=== PATIENT | male | born 1930 | race Caucasian/White ===

== ENCOUNTER → 2017-04-10 | Outpatient (CLI) | payer MEDICARE ==
[2015-04-06 12:32] VITALS: BMI 23.7
[~2017-04-10] MED LIST: ACE325 PO; ACET-1966 PO; ACET-2043 PO; ACET-3017 PO; ALB18R INH; ALBU8.5H IH; ALLO100T70 PO; AMLO-96 PO; AMOX-559 PO; ASPI-1441 PO; ASPI-757 PO; ASPI81TA94 PO; AZIT-1 PO; AZIT-17 PO; Albuterol/Ipratropium NEB; BISA10SU62 RC; CA C1TAB85 PO; CALC-18 PO; CALC-465 PO; CALC200 PO; CALC500T6 PO; CALC600T82 PO; CEFU500T50 PO; CEPH-13 PO; CHOL10005 PO; CITA-139 PO; DOC100 PO; DOCU-416 PO; FAM20 PO; FERR-53 PO; FERR325C2 PO; FERR325T24 PO; FLU IM; FLUC100T35 PO; FURO-45 PO; FURO-47 PO; FURO20TA19 PO; FURO40TA35 PO; GABA-1 PO; GABA-547 PO; GUAI118L69 PO; GUAI600T31 PO; GUAI600T57 PO; HYDR-2966 PO; IPR14R INH; IPR14R NEB; IPRA0.2S8 IH; IPRA0.2S8 NEB; IPRA3AMP21 IH; LACT PO; LACT-213 PO; LEV112 PO; LEVA0.6320 IH; LEVO-3 PO; LEVO-85 PO; LEVO150T72 PO; LEVO50TA80 PO; LEVOTHYROXINE; LOPE-84 PO; LOPE2CAP88 PO; LOR5/325 PO; MIRT-22 PO; MIRT7.5T2 PO; MOM PO; MULT-1335 PO; MULT-885 PO; MULT1TAB64 PO; NAP500 PO; OMEP-125 PO; OMEP10CA40 PO; OSE75 PO; OXYC-373 PO; PANT20TA27 PO; PANT40TA65 PO; PER PO; PNEU0.5D3 IM; POLY17PO25 PO; PRED-1 PO; PRED20TA6 PO; PREG50CA48 PO; Polyethylene Glycol PO; RANI-324 PO; RIT100I IV; SENN-287 PO; SENN-90 PO; SODI104S3 NS; SODI30SP6 NS; SPIR25TA78 PO; SULF-197 PO; TAM4 PO; TAMS0.4C25 PO; TAMS0.4C70 PO; VALA100059 PO; oxygen
[2017-04-10 10:24] LABS: PLATELET COUNT, AUTOMATED 103 K/uL (150-450)
== END ==
LOC: LAB 09:36
PROVIDERS: ATTEND Internal Medicine
DX: I50.9 Heart failure, unspecified (principal); N18.3 Chronic kidney disease, stage 3 (moderate); C91.10 Chronic lymphocytic leukemia of B-cell type not having achieved remission; J44.9 Chronic obstructive pulmonary disease, unspecified; R09.02 Hypoxemia; G62.9 Polyneuropathy, unspecified; L97.529 Non-pressure chronic ulcer of other part of left foot with unspecified severity; B95.8 Unspecified staphylococcus as the cause of diseases classified elsewhere
CPT/HCPCS: 36415; 82040; 82247; 82310; 82374; 82435; 82565; 82947; 84075; 84132; 84155; 84295; 84443; 84450; 84460; 84520; 85025; 87070; 87073

== ENCOUNTER → 2017-05-16 | Outpatient (CLI) | payer MEDICARE ==
[2015-04-06 12:32] VITALS: BMI 23.7
[~2017-05-16] MED LIST changes: +BISA-71 PO; +SALI44.34 PO; +[UNRECOGNIZED DRUG - OTHER] PO
== END ==
LOC: ZZSPRING 01:28
PROVIDERS: ATTEND Internal Medicine
DX: J44.9 Chronic obstructive pulmonary disease, unspecified (principal); N18.3 Chronic kidney disease, stage 3 (moderate)
CPT/HCPCS: 36415; 82310; 82374; 82435; 82565; 82947; 84132; 84295; 84520

== ENCOUNTER → 2017-06-13 | Outpatient (CLI) | payer MEDICARE ==
[2015-04-06 12:32] VITALS: BMI 23.7
[~2017-06-13] MED LIST changes: -RANI-324 PO; +RANI-366 PO
== END ==
LOC: ZZSPRING 02:45
PROVIDERS: ATTEND Urology
DX: C61 Malignant neoplasm of prostate (principal)
CPT/HCPCS: 36415; 84153

== ENCOUNTER → 2017-07-04 | Outpatient (REF) | payer MEDICARE ==
[2015-04-06 12:32] VITALS: BMI 23.7
[~2017-07-04] MED LIST changes: -CITA-139 PO; +CITA-145 PO; +DOXY-181 PO
== END ==
LOC: ZZSPRING 10:20
PROVIDERS: ATTEND Internal Medicine
DX: R82.90 Unspecified abnormal findings in urine (principal); R53.1 Weakness

== ENCOUNTER → 2017-07-05 | Outpatient (CLI) | payer MEDICARE ==
[2015-04-06 12:32] VITALS: BMI 23.7
[2017-07-05 14:14] LABS: PLATELET COUNT, AUTOMATED 120 K/uL (150-450)
--- NOTE | 2017-07-05 15:26 | RADIOLOGY IMAGING REPORT ---
FACILITY: [facility] - [place] PATIENT NAME: Cali Escalera : 1930 MR: [id number] V: [id number] EXAM DATE: ORDERING PHYSICIAN: ROGERIO GUPTA TECHNOLOGIST: Location: [facility] [place] Patient: Cali Escalera : 1930 Visit/Account:[id number] Date of Sevice: 07/05/2017 CHEST PA AND LAT Provided history: sob Additional pertinent history: none Two views obtained COMPARISON STUDIES: Single view chest 08/07/16 and two-view chest 01/03/2016 and 09/29/2015 FINDINGS: Support lines and tubes: None. Lungs / pleura / berenice: There is blunting of both lateral angles and there are coarse increased linea r markings both lung bases, stable from baseline studies. No new acute infiltrate has developed. Up per lungs are hyperlucent. Heart / mediastinum /vessels: Negative Nodules / masses: None significant Bones / body wall: Stable old posterior medical changes about the right shoulder multiple right ribs . Mild anterior wedging mid and upper T-spine is stable. No new thoracic spine fractures. Lower neck / Upper abdomen: Negative IMPRESSION: Stable chronic changes are defined above. No new acute cardiopulmonary disease. Report Dictated By: Nhan Carvalho MD at 07/05/2017 3:20 PM Report E-Signed By: Nhan Carvalho MD at 07/05/2017 3:23 PM WSN:[id number]
== END ==
LOC: LAB 13:38
PROVIDERS: ATTEND Internal Medicine
DX: R41.82 Altered mental status, unspecified (principal); I50.9 Heart failure, unspecified; N18.3 Chronic kidney disease, stage 3 (moderate); C91.10 Chronic lymphocytic leukemia of B-cell type not having achieved remission; J44.9 Chronic obstructive pulmonary disease, unspecified
CPT/HCPCS: 36415; 71046; 81001; 82040; 82247; 82310; 82374; 82435; 82565; 82947; 83880; 84075; 84132; 84155; 84295; 84443; 84450; 84460; 84520; 85025

== ENCOUNTER → 2017-08-22 | Outpatient (CLI) | payer MEDICARE ==
[2015-04-06 12:32] VITALS: BMI 23.7
[~2017-08-22] MED LIST changes: +IPRA3AMP10 IH; -IPRA3AMP21 IH; -SPIR25TA78 PO; +SPIR25TA80 PO
[2017-08-22 08:49] LABS: PLATELET COUNT, AUTOMATED 116 K/uL (150-450)
== END ==
LOC: ZZSPRING 00:17
PROVIDERS: ATTEND Internal Medicine Hematology
DX: C91.10 Chronic lymphocytic leukemia of B-cell type not having achieved remission (principal); D47.2 Monoclonal gammopathy; N18.9 Chronic kidney disease, unspecified; J44.9 Chronic obstructive pulmonary disease, unspecified
CPT/HCPCS: 36415; 82040; 82232; 82247; 82310; 82374; 82435; 82565; 82784; 82947; 83615; 83883; 84075; 84132; 84155; 84295; 84450; 84460; 84520; 84550; 85025; 86334

== ENCOUNTER 2017-08-24 11:57 | Outpatient (RCR) | payer MEDICARE ==
[2015-04-06 12:32] VITALS: BMI 23.7
[2017-08-24 12:02] VITALS: BP 94/59
--- NOTE | 2017-08-24 19:36 | EL-TARABILY ONCOLOGY NOTE ---
EVENT DATE: August 24, 2017 DIAGNOSES 1. Chronic lymphocytic leukemia. 2. 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 3. Anemia. 4. Hyperuricemia. 5. Chronic obstructive pulmonary disease. 6. Hypothyroidism. 7. History of prostate cancer. 8. Chronic kidney disease. CHIEF COMPLAINT The patient is here today for followup of his CLL and monoclonal gammopathy of undetermined significance. ONCOLOGY HISTORY The patient is an 87-year-old male who presented with anemia and thrombocytopenia with symptoms that started on December 25, 2012. Laboratory data at that time showed abnormal flow cytometry consistent with chronic lymphocytic leukemia. He started treatment with rituximab weekly on July 04, 2013. HISTORY OF PRESENT ILLNESS The patient is here today for followup of his CLL and MGUS. He is doing fine currently except for having some numbness in his left hand sometimes, but other than that, he is stable. He denies any constitutional symptoms. PAST MEDICAL HISTORY 1. Chronic kidney disease. 2. Chronic obstructive pulmonary disease (COPD). 3. Lower extremity edema. 4. Hypothyroidism. 5. Intermittent leukocytosis. 6. Prostate cancer history. 7. Renal cysts. PAST SURGICAL HISTORY 1. Cataract surgery. 2. Hernia repair. SOCIAL HISTORY The patient lives with his sister. He is single, does not have children. He is retired from work. He does not have any current history of tobacco or alcohol use. FAMILY HISTORY Negative for cancer or blood diseases. CURRENT MEDICATIONS 1. Mirtazapine 7.5 mg at bedtime. 2. Lasix 20 mg daily. 3. Tylenol 325 mg one to two tablets every morning. 4. Acidophilus caplet two with breakfast and supper. 5. Omeprazole 20 mg daily. 6. Aspirin 325 mg q.4-6 hours as needed for pain. 7. Levothyroxine 112 mcg daily. 8. Ipratropium/albuterol sulfate nebulization 3 mL three times daily. 9. MiraLAX 17 g three times a week. 10. Citalopram 20 mg daily. 11. Vitamin D3 at 1000 units daily. 12. Tamsulosin 0.4 mg capsule twice daily. 13. Robitussin 5 mL q.4-6 hours p.r.n. for cough. 14. Milk of magnesia p.r.n. for constipation. 15. Bisacodyl 5 mg EC one to two p.r.n. for constipation. ALLERGIES 1. ALLERGAN. 2. LIDOCAINE. 3. CEFTIN. REVIEW OF SYSTEMS CONSTITUTIONAL: No appetite or weight change. No fever, chills or sweating. No recent infection. HEENT: Ears: No tinnitus or hearing problem. Nose: The patient has some epistaxis. Throat: No sore throat or mouth ulcers. Eyes: No diplopia or visual changes. RESPIRATORY: He has cough and shortness of breath. CARDIOVASCULAR: No chest pain, orthopnea, or paroxysmal nocturnal dyspnea (PND) . No edema. No palpitations. GASTROINTESTINAL: No nausea or vomiting. No diarrhea or constipation. No change in bowel movements. No heartburn or swallowing difficulties. No abdominal pain. No jaundice. No hematemesis, melena or rectal bleeding. GENITOURINARY: No hematuria or dysuria. MUSCULOSKELETAL: He has pain in the shoulders, more on the left than th eright. NEUROLOGICAL: He has some numbness in his left hand sometimes. HEMATOLOGIC/LYMPHATIC: He is weak, tired, and fatigued. SKIN: No skin rash or lumps. PSYCHIATRIC: No anxiety or depression. PHYSICAL EXAMINATION GENERAL: Looks stable. Well-developed, well-nourished, and in no acute distress. VITAL SIGNS: Blood pressure 94/59, pulse 81 per minute, respirations 16 per minute, temperature 97.7, pulse ox 90% on oxygen supplement. HEENT: Head: Atraumatic. No sinus tenderness to palpation. Eyes: No icterus or conjunctivitis. Mouth and throat: No oral thrush or mucositis. NECK: Supple. No cervical or supraclavicular lymphadenopathy. LUNGS: Clear to auscultation and percussion bilaterally. HEART: Regular rate and rhythm. No gallops, murmurs, clicks or rubs. ABDOMEN: Soft and lax. No tenderness. No hepatosplenomegaly. No masses. EXTREMITIES: No cyanosis, clubbing or edema. LYMPHATICS: No peripheral lymphadenopathy. NEUROLOGICAL: Conscious, alert and oriented times three. No focal motor or sensory deficits. PSYCHIATRIC: Mood and affect appear normal. SKIN: No skin rash, bruise or purpuric eruption. DIAGNOSTIC DATA CBC showed white count 9.8, hemoglobin 10.9, hematocrit 32, platelets 116,000. Chem panel totally normal except carbon dioxide 35, BUN 41, creatinine 1.7, total protein 6, albumin 3.2. Beta-2 microglobulin is 13.6. Sisters free light chain is 10.9, lambda free light chain is 2.45, and the kappa to lambda free light chain ratio is 4.45 which is mildly elevated. Serum protein electrophoresis is still pending. ASSESSMENT 1. Chronic lymphocytic leukemia, under control with previous rituximab therapy started July 04, 2013, and he completed four courses July 25, 2013. His chronic lymphocytic leukemia is under control currently and in remission. The patient denies any B symptoms. I am planning to continue followup. I will see him again in six months with CBC, chemistry panel, LDH, and uric acid. 2. Monoclonal gammopathy of unknown significance with IgM kappa level of 0.51 g /dL. His current level is still pending, but his kappa free light chain is mildly elevated at 10.9. I am planning to continue followup. I will repeat his myeloma profile again in six months. 3. Chronic kidney disease. His current creatinine is 1.7, which is better than the last visit. Will continue to monitor. 4. Hyperuricemia, normalized with allopurinol. I am planning to continue allopurinol 100 mg daily. 5. Mild thrombocytopenia. Current platelet count 116,000, which is stable. Will continue to monitor. 6. Hypothyroidism, on supplement. 7. History of prostate cancer. 8. Anemia due to anemia of chronic renal disease. Current hemoglobin 10.9. Will continue to monitor. Will consider Aranesp if the hemoglobin drops below 10 g/dL. PLAN 1. Continue followup. 2. The patient to return in six months with CBC, chem panel, LDH, uric acid, and myeloma profile. 3. The patient to contact us for any new concerns or complaints. [facility]
== END 2017-09-01 09:19 | disposition home or self-care (01) ==
LOC: ONC 11:57
PROVIDERS: ATTEND Internal Medicine Hematology
DX: C91.10 Chronic lymphocytic leukemia of B-cell type not having achieved remission (principal); D47.2 Monoclonal gammopathy; E86.0 Dehydration; D64.9 Anemia, unspecified; E03.9 Hypothyroidism, unspecified; J44.9 Chronic obstructive pulmonary disease, unspecified; N18.9 Chronic kidney disease, unspecified; Z85.46 Personal history of malignant neoplasm of prostate; R60.0 Localized edema; E79.0 Hyperuricemia without signs of inflammatory arthritis and tophaceous disease
CPT/HCPCS: 99212

== ENCOUNTER → 2017-12-27 | Outpatient (CLI) | payer MEDICARE ==
[2015-04-06 12:32] VITALS: BMI 23.7
[~2017-12-27] MED LIST changes: +AMLO-111 PO; -AMLO-96 PO; +CARB-340 OT
[2017-12-27 11:24] LABS: PLATELET COUNT, AUTOMATED 128 K/uL (150-450)
== END ==
LOC: LAB 11:05
PROVIDERS: ATTEND Internal Medicine
DX: N18.3 Chronic kidney disease, stage 3 (moderate) (principal); I50.9 Heart failure, unspecified; J44.9 Chronic obstructive pulmonary disease, unspecified; C91.10 Chronic lymphocytic leukemia of B-cell type not having achieved remission
CPT/HCPCS: 36415; 82040; 82247; 82310; 82374; 82435; 82565; 82947; 84075; 84132; 84155; 84295; 84439; 84443; 84450; 84460; 84520; 85025

== ENCOUNTER → 2018-01-24 | Outpatient (CLI) | payer MEDICARE ==
[2015-04-06 12:32] VITALS: BMI 23.7
--- NOTE | 2018-01-25 08:07 | EKG ---
FAC[place]: [facility] [place] PATIENT NAME: DENICE PICKARD : [id number] MR: [id number] V: [id number] EXAM DATE: [id number] ORDERING PHYSICIAN: ROGERIO GUPTA TECHNOLOGIST: JUANA Test Reason : DECLINE Blood Pressure : / mmHG Vent. Rate : 076 BPM Atrial Rate : 076 BPM P-R Int : 202 ms QRS Dur : 112 ms QT Int : 404 ms P-R-T Axes : 018 -28 027 degrees QTc Int : 454 ms Sinus rhythm with frequent premature ventricular complexes Otherwise normal ECG When compared with ECG of 07-AUG-2016 00:28, No significant change was found Confirmed by ROGERIO GUPTA ([id number]) on 01/25/2018 8:35:20 AM Referred By: CASANDRA Confirmed By:ROGERIO GUPTA
== END ==
LOC: RESP 14:54
PROVIDERS: ATTEND Internal Medicine
DX: Z02.9 Encounter for administrative examinations, unspecified (principal)

== ENCOUNTER → 2018-02-13 | Outpatient (CLI) | payer MEDICARE ==
[2015-04-06 12:32] VITALS: BMI 23.7
[2018-02-13 08:13] LABS: PLATELET COUNT, AUTOMATED 102 K/uL (150-450)
== END ==
LOC: ZZSPRING 01:40
PROVIDERS: ATTEND Internal Medicine Hematology
DX: C91.90 Lymphoid leukemia, unspecified not having achieved remission (principal)
CPT/HCPCS: 82232; 83615; 83883; 84165; 84550; 85025

== ENCOUNTER → 2018-02-13 | Outpatient (CLI) | payer MEDICARE ==
[2015-04-06 12:32] VITALS: BMI 23.7
== END ==
LOC: ZZSPRING 01:38
PROVIDERS: ATTEND Internal Medicine
DX: I50.9 Heart failure, unspecified (principal); N18.3 Chronic kidney disease, stage 3 (moderate)
CPT/HCPCS: 36415; 82040; 82247; 82310; 82374; 82435; 82565; 82947; 84075; 84132; 84155; 84295; 84450; 84460; 84520

== ENCOUNTER 2018-02-22 11:00 | Outpatient (RCR) | payer MEDICARE ==
[2015-04-06 12:32] VITALS: BMI 23.7
[~2018-02-22 11:00] MED LIST changes: -AMLO-111 PO; +AMLO-125 PO; +[UNRECOGNIZED DRUG - CODE] MC
[2018-02-22 11:04] VITALS: BP 87/59
--- NOTE | 2018-03-08 09:05 | ONCOLOGY FOLLOW UP NOTE ---
EVENT DATE: February 22, 2018 CHIEF COMPLAINT Followup for CLL and monoclonal gammopathy. HISTORY OF PRESENT ILLNESS Patient is an 87-year old male who is seen today in six month followup. He lives at [facility]. He presents today in a wheelchair and is wearing oxygen for his COPD. He is very quiet but does answer questions. 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 He also has constipation, fairly well controlled with Milk of Magnesia. ONCOLOGY HISTORY The patient is an 87-year-old male who presented with anemia and thrombocytopenia with symptoms that started on December 25, 2012. Laboratory data at that time showed abnormal flow cytometry consistent with chronic lymphocytic leukemia. Completed treatment with rituximab in 2013. PAST MEDICAL HISTORY 1. Chronic kidney disease. 2. Chronic obstructive pulmonary disease (COPD). 3. Lower extremity edema. 4. Hypothyroidism. 5. Intermittent leukocytosis. 6. Prostate cancer history. 7. Renal cysts. PAST SURGICAL HISTORY 1. Cataract surgery. 2. Hernia repair. SOCIAL HISTORY The patient lives with his sister. He is single, does not have children. He is retired from work. He does not have any current history of tobacco or alcohol use. FAMILY HISTORY Negative for cancer or blood diseases. CURRENT MEDICATIONS 1. Mirtazapine 7.5 mg at bedtime. 2. Lasix 20 mg daily. 3. Tylenol 325 mg one to two tablets every morning. 4. Acidophilus caplet two with breakfast and supper. 5. Omeprazole 20 mg daily. 6. Aspirin 325 mg q.4-6 hours as needed for pain. 7. Levothyroxine 112 mcg daily. 8. Ipratropium/albuterol sulfate nebulization 3 mL three times daily. 9. MiraLAX 17 g three times a week. 10. Citalopram 20 mg daily. 11. Vitamin D3 at 1000 units daily. 12. Tamsulosin 0.4 mg capsule twice daily. 13. Robitussin 5 mL q.4-6 hours p.r.n. for cough. 14. Milk of magnesia p.r.n. for constipation. 15. Bisacodyl 5 mg EC one to two p.r.n. for constipation. ALLERGIES 1. ALLERGAN. 2. LIDOCAINE. 3. CEFTIN. REVIEW OF SYSTEMS A 12-point review of systems is performed and is negative except as stated above. PHYSICAL EXAMINATION VITAL SIGNS: Weight is not taken. BP 87/59, P 78, R 16, temperature 98.2, O2 sat 87% on 4L per nasal cannula. HEAD: Normocephalic, atraumatic. EYES: Sclerae anicteric. MOUTH: Slightly dry mucous membranes. NECK: Stiff with decreased range of motion. LUNGS: Slightly diminished but clear bilaterally. CARDIOVASCULAR: Heart rate regular, 78 per minute without murmur, S3 or S4. EXTREMITIES: Trace pretibial edema bilaterally. NEUROLOGICAL: Nonfocal. LABS CBC on February 13, 2018, shows a WBC of 7.8, hemoglobin 10.7, hematocrit 32.4, platelets 102,000. CMP showed a BUN 39, creatinine 2.2, albumin 2.8. Bonneau light chain 16.7. Lambda light chain is 4.4. Bonneau/lambda ratio is 3.77. Immunofixation not done. IMPRESSION The patient is an 87-year old male diagnosed with chronic lymphocytic leukemia in 2013. Completed four cycles of rituximab in July 2013. Chronic lymphocytic leukemia has been under control. He also was diagnosed with monoclonal gammopathy of unknown significance. 1. Chronic lymphocytic leukemia. CBC shows no evidence of recurrence. WBC is within normal limits. He is anemic with a hemoglobin today of 10.7. This has ranged in 10-12 g/dL range. Will consider treatment with Aranesp if hemoglobin is < 10.0. 2. Thrombocytopenia. Platelet count today is 102,000. He denies any issues related to excessive bruising or bleeding. Platelet counts have been low for the past two years. 3. Monoclonal gammopathy of unknown significance. Bonneau light chains have increased from 10.9 to 16.7. Bonneau/lambda light chain ratio has decreased slightly to 3.77. We will continue to monitor. 4. Chronic kidney disease. Creatinine today is 2.3. This has been stable over the past year. 5. Follow up in six months for continued care. CBC, CMP, LDH, uric acid, SPEP with immunofixation and serum free light chains will be done before that visit. [facility]
== END 2018-03-12 12:43 | disposition home or self-care (01) ==
LOC: ONC 11:00
PROVIDERS: ATTEND Internal Medicine Hematology
DX: C91.10 Chronic lymphocytic leukemia of B-cell type not having achieved remission (principal); D47.2 Monoclonal gammopathy; E86.0 Dehydration; D64.9 Anemia, unspecified; E03.9 Hypothyroidism, unspecified; J44.9 Chronic obstructive pulmonary disease, unspecified; N18.9 Chronic kidney disease, unspecified; Z85.46 Personal history of malignant neoplasm of prostate; R60.0 Localized edema; E79.0 Hyperuricemia without signs of inflammatory arthritis and tophaceous disease; Z99.81 Dependence on supplemental oxygen
CPT/HCPCS: 99212

== ENCOUNTER → 2018-04-10 | Outpatient (CLI) | payer MEDICARE ==
[2015-04-06 12:32] VITALS: BMI 23.7
== END ==
LOC: ZZSPRING 04-09 08:13 → EDSTATUS 04-09 08:23 → ZZSPRING 02:54
PROVIDERS: ATTEND Internal Medicine
DX: R63.4 Abnormal weight loss (principal); D64.9 Anemia, unspecified; J18.9 Pneumonia, unspecified organism; N18.9 Chronic kidney disease, unspecified; R60.0 Localized edema; F32.9 Major depressive disorder, single episode, unspecified; C61 Malignant neoplasm of prostate; I10 Essential (primary) hypertension; J44.9 Chronic obstructive pulmonary disease, unspecified; J45.909 Unspecified asthma, uncomplicated; K59.00 Constipation, unspecified
CPT/HCPCS: 36415; 82040; 82247; 82310; 82374; 82435; 82565; 82947; 84075; 84132; 84155; 84295; 84450; 84460; 84520

== ENCOUNTER 2018-04-17 10:04 | Inpatient (IN) | payer MEDICARE ==
[~2018-04-17] VITALS: Ht 182.9 cm; Wt 66.7 kg
[2018-04-17 10:44] LABS: PLATELET COUNT, AUTOMATED 181 K/uL (150-450)
--- NOTE | 2018-04-17 10:52 | ER Report ---
History and Physical Time Seen By MD: 10:40 Hx. of Stated Complaint: decreased oxygen saturations HPI/ROS CHIEF COMPLAINT: Hypoxia concern for pneumonia HISTORY OF PRESENT ILLNESS: Patient is an 87-year-old male who was sent from the office of , for concerns of hypoxia and suspected pneumonia. Patient was satting only 70% on 7 L by face mask. He is been feeling rundown. He is a resident of [facility]. He is in DNR/DNI. Patient is somewhat of a poor historian due to some respiratory distress and inability to verbally communicate. REVIEW OF SYSTEMS: Constitutional: No fever, no chills. Eyes: No discharge. ENT: No sore throat. Cardiovascular: No chest pain, no palpitations. Respiratory: Shortness of breath with cough Gastrointestinal: No abdominal pain, no vomiting. Genitourinary: No hematuria. Musculoskeletal: No back pain. Skin: No rashes. Neurological: No headache. Allergies: Coded Allergies: cefuroxime axetil (Verified Allergy, Intermediate, blisters, 04/17/18) lidocaine (Verified Allergy, Intermediate, CANT SMELL OR TASTE, 04/17/18) Uncoded Allergies: ALLERGAN (Allergy, Unknown, 05/30/13) Home Meds Active Scripts Lorazepam (ATIVAN) 0.5 Mg Tablet, 1-4 TAB PO Q4-6H PRN for ANXIETY, #28 TAB 0 Refills Prov:JENSEN JIMENEZ APRN TABLE ASSEMBLER-C 04/19/18 Morphine Sulfate 20 MG/ML Oral Solution (ROXANOL 20 MG/ML) 100 Mg/5 Ml Solution, 0.25-1 ML PO Q1H PRN for pain/SOB, #30 ML 0 Refills Prov:JENSEN JIMENEZ APRN TABLE ASSEMBLER-C 04/19/18 Ranitidine Hcl (ZANTAC) 150 Mg Tablet, 150 MG PO BID, #180 TAB 4 Refills Prov:ROGERIO GUPTA MD 02/19/18 Incontinence Pad,Liner,Disp (DEPEND GUARDS FOR MEN) 1 Each Each, BOX DIRECTED, #3 5 Refills Prov:ROGERIO GUPTA MD 02/19/18 Furosemide (FUROSEMIDE) 20 Mg Tablet, 1 TAB PO QODAY, #45 TAB 3 Refills Prov:ROGERIO GUPTA MD 02/13/18 Levothyroxine Sodium (LEVOTHYROXINE SODIUM) 0.112 Mg Tab, 0.112 MG PO QDAY, #90 TAB 4 Refills Prov:ROGERIO GUPTA MD 02/13/18 Citalopram Hydrobromide (CITALOPRAM HBR) 20 Mg Tablet, 1 TAB PO QDAY, #90 TAB 1 Refill Prov:ROGERIO GUPTA MD 11/24/17 Tamsulosin Hcl (TAMSULOSIN HCL) 0.4 Mg Cap.er.24h, 1 CAP PO BID, #180 CAP 1 Refill Prov:ROGERIO GUPTA MD 11/24/17 Mirtazapine (MIRTAZAPINE) 15 Mg Tablet, 1 TAB PO QHS, #90 TAB 1 Refill Prov:ROGERIO GUPTA MD 11/06/17 Ipratropium/Albuterol Sulfate (IPRAT-ALBUT 0.5-3(2.5) MG/3 ML) 3 Ml Ampul.neb, 1 PUFF IH TID PRN for SHORTNESS OF BREATH, #90 VIAL 5 Refills Prov:ROGERIO GUPTA MD 07/05/17 Cholecalciferol (Vitamin D3) (VITAMIN D3) 1,000 Unit Tablet, 1 TAB PO DAILY, #90 TAB 4 Refills Prov:ROGERIO GUPTA MD 02/17/17 Lactose-Free Food (ENSURE LIQUID) 237 Ml Liquid, 1 BOTTLE PO BID, #60 BOTTLE 6 Refills Prov:ROGERIO GUPTA MD 11/03/16 Reported Medications Aspirin (ASPIRIN) 325 Mg Tablet, 325 MG PO Q4-6H PRN for CHEST PAIN, TAB 04/17/18 Acetaminophen (TYLENOL) 325 Mg Tablet, 650 MG PO DAILY, TAB 04/17/18 Polyethylene Glycol 3350 (MIRALAX) 17 Gm Powd.pack, 17 GM PO DIRECTED, PKT Take M, W, F 04/25/17 [Cmpd Magic Mouthwash] No Conflict Check, 5 ML PO PRN Take 5 mL PO, swich, gargle and spit Q4H PRN for sore throat 04/25/17 Saliva Stimulant Agents Comb.3 (BIOTENE MOISTURIZING MOUTH) 44.3 Ml [place], 1 SPRAY PO TID PRN for DRY MOUTH, SPRAY 04/25/17 Bisacodyl (BISACODYL) 5 Mg Tablet.dr, 1-2 TAB PO PRN PRN for CONSTIPATION 04/25/17 Loperamide Hcl (LOPERAMIDE) 2 Mg Capsule, 2 MG PO, CAPSULE 07/15/16 Guaifenesin/Dextromethorphan (Robitussin Cough-Chest Dm Liq) 200 Mg-10 Mg/5 Ml Liquid, 5 ML PO PRN PRN for COUGH 07/17/15 Magnesium Hydroxide (MILK OF MAGNESIA) 400 Mg/5 Ml Oral.susp, 400 MG PO PRN PRN for CONSTIPATION, BOTTLE 07/17/15 [oxygen] No Conflict Check 01/21/14 Discontinued Reported Medications Aspirin (ASPIRIN) 81 Mg Tab.chew, 81 MG PO QDAY, TAB.CHEW 12/27/17 Discontinued Scripts Oseltamivir Phosphate (TAMIFLU) 75 Mg Cap, 75 MG PO QDAY, #14 CAP Prov:ROGERIO GUPTA MD 04/11/18 Carbamide Peroxide 6.5% (DEBROX DROPS) 15 Ml Drops, 4 DROP OT BID for 5 Days, #15 ML Prov:ROGERIO GUPTA MD 12/27/17 Past Medical/Surgical History Past medical history for neuropathy, sciatica, COPD, history of pneumonia, chronic renal failure with creatinine of 2.0, depression, hypothyroidism, anemia , leukemia chronic lymphocytic, history of hernia repair, cataract extraction and prostatectomy. Unable To Obtain Past Medical: Unable to Obtain/Update Hx Smoking: Yes Smoking Status: Former Smoker Hx Substance Use Disorder: No Hx Alcohol Use: Yes Constitutional Physical Exam General/Constitutional: Patient is somnolent, speaks only 1-2 word sentences in no acute respiratory distress Head: Normocephalic and atraumatic. Eyes: Conjunctival clear, Ears:External canals are clear. Tympanic membranes are clear with normal landmarks and light reflex. Nares: No rhinorrhea or bleeding. Turbinates are pink and moist. Oropharyngeal: Mucous membranes are moist. There is no pharyngeal erythema or exudate. There are no palatal petechiae. Uvula is midline and symmetrical. Neck: Supple, no adenopathy. Cardiovascular: Heart is tachycardic Pulmonary: Lungs are noted. Decreased breath sounds bilaterally Abdomen: Soft, nontender, no guarding or peritoneal signs. Extremities: No gross deformities, No peripheral cyanosis. Able to move all 4 extremities. Neuro: Somnolent but arousable and responsive to questioning. Skin: No rashes, skin is warm dry and well perfused. Medical Decision Making Data Points Laboratory Hematology Test 04/17/18 10:20 04/17/18 10:24 04/17/18 10:32 04/17/18 10:54 Influenza Virus Type A (PCR) Positive (NEGATIVE) Influenza Virus Type B (PCR) Negative (NEGATIVE) Platelet Estimate Normal Whole Blood Glucose 90 mg/DL (75-110) Blood Gas Puncture Site Left radial Blood Gas Patient Temperature 98.4 DEGREES Arterial Blood pH 7.35 (7.35-7.45) Arterial Blood Partial Pressure CO2 56 mmHg (32-37) Arterial Blood Partial Pressure O2 112 mmHg (60-80) Arterial Blood HCO3 31 mmol/L (20-26) Arterial Blood Oxygen Saturation 98 % (92-100) Arterial Blood Base Excess 5.0 mmol/L Tarik Test Acceptable Oxygen Liters/Minute 60 Chemistry Test 04/17/18 10:20 04/17/18 10:24 04/17/18 10:32 04/17/18 10:54 Influenza Virus Type A (PCR) Positive (NEGATIVE) Influenza Virus Type B (PCR) Negative (NEGATIVE) Platelet Estimate Normal Whole Blood Glucose 90 mg/DL (75-110) Blood Gas Puncture Site Left radial Blood Gas Patient Temperature 98.4 DEGREES Arterial Blood pH 7.35 (7.35-7.45) Arterial Blood Partial Pressure CO2 56 mmHg (32-37) Arterial Blood Partial Pressure O2 112 mmHg (60-80) Arterial Blood HCO3 31 mmol/L (20-26) Arterial Blood Oxygen Saturation 98 % (92-100) Arterial Blood Base Excess 5.0 mmol/L Tarik Test Acceptable Oxygen Liters/Minute 60 Microbiology Microbiology Date/Time Source Procedure Growth Status 04/17/18 10:27 Blood Line Draw Blood Culture - Final NO GROWTH AFTER 5 DAYS IN BOTH THE AE... Complete 04/17/18 10:24 Blood Peripheral Draw Blood Culture - Final NO GROWTH AFTER 5 DAYS IN BOTH THE AE... Complete EKG/Imaging EKG Interpretation EKG shows sinus rhythm with poor baseline occasional premature ventricular contractions nonspecific ST segment and T-wave abnormality ED Course/Re-evaluation ED Course 04/17/2018 11:22:05 am she was positive for influenza. Awaiting results of chest x-ray. Patient does have elevated white count at 12,000. Patient is aspiration risk and do not believe he can safely take Tamiflu at this time. Patient will likely require admission Decision to Disposition Date: Apr 17, 2018 Decision to Disposition Time: 12:10 Depart Departure Latest Vital Signs Impression: Primary Impression: Influenza A Additional Impression: Pneumonia Condition: Improved Disposition: Admitted from ER (to Dr Chan) Referrals: ROGERIO GUPTA MD (PCP) Problem Qualifiers Additional Impression: Pneumonia Pneumonia type: due to unspecified organism Laterality: unspecified laterality Lung location: unspecified part of lung Qualified Codes: J18.9 - Pneumonia, unspecified organism CRISTAL CLAY MD Apr 17, 2018 10:52
[2018-04-17] MEDS ORDERED: ALBUTEROL/IPRATROPIUM 3 ML NEB NEB ONE (11:10)
[2018-04-17] MEDS ORDERED: OSELTAMIVIR PHOS 75 MG CAP PO ONE (11:10)
[2018-04-17] MEDS ORDERED: LEVOFLOXACIN/D5W 750 MG/150 ML 150 ML IVPB ONE (11:35)
--- NOTE | 2018-04-17 11:36 | RADIOLOGY IMAGING REPORT ---
FACILITY: [facility] - [place] PATIENT NAME: Cali Escalera : 1930 MR: [id number] V: [id number] EXAM DATE: ORDERING PHYSICIAN: CRISTAL CLAY TECHNOLOGIST: Location: [facility] Patient: Cali Escalera : 1930 Visit/Account:[id number] Date of Sevice: 04/17/2018 Single view of the chest Indication: Respiratory distress. Comparison: X-ray examination of the chest from January 2018 Findings: Cardiac silhouette is unchanged. There is pulmonary hyperinflation with similar linear atelectasis/s carring in the lung bases. Deformity is noted of the right hemithorax from old trauma, unchanged. Increased blunting right costophrenic sulcus suspicious of trace right effusion. No current failure. Lucency is noted within the apices, finding indicative of underlying emphysema. IMPRESSION: 1. Pulmonary hyperinflation with underlying severe parenchymal changes from emphysema with similar bi basilar scarring/atelectasis. Compared to prior examination, increased blunting of the right costoph renic sulcus suspicious for a small right effusion. No current failure. Report Dictated By: Geronimo Mota MD at 04/17/2018 11:31 AM Report E-Signed By: Geronimo Mota MD at 04/17/2018 11:33 AM WSN:[email or web address]
[2018-04-17] MEDS ORDERED: NS(*) 0.9% 1000 ML BAG 1,000 ML IV ONE (11:52)
[2018-04-17] MEDS ORDERED: ACET-1966 PO (12:16)
[2018-04-17] MEDS ORDERED: ASPI-757 PO (12:16)
--- NOTE | 2018-04-17 12:24 | EKG ---
FACILITY: [facility] PATIENT NAME: DENICE PICKARD : [id number] MR: [id number] V: [id number] EXAM DATE: ORDERING PHYSICIAN: CRISTAL CLAY TECHNOLOGIST: MARIANA Test Reason : DECREASED O2 Blood Pressure : / mmHG Vent. Rate : 074 BPM Atrial Rate : 074 BPM P-R Int : 170 ms QRS Dur : 096 ms QT Int : 386 ms P-R-T Axes : -02 021 096 degrees QTc Int : 428 ms Sinus rhythm with occasional premature ventricular complexes but cannot rule out atrial fibrillation because of baseline artifact Nonspecific ST and T wave abnormality Abnormal ECG When compared with ECG of 24-JAN-2018 15:05, No significant change was found Confirmed by DORINA FRANCIS ([id number]) on 04/17/2018 10:07:24 PM Referred By: DANNA Confirmed By:DORINA FRANCIS
[2018-04-17] MEDS ORDERED: OSELTAMIVIR PHOS 6 MG/1 ML BTL PO SCH (13:05)
[2018-04-17 14:04] VITALS: BP 100/64
[2018-04-17] MEDS ORDERED: GUAIFENESIN/DEXTROMETHORPHAN 5 ML PO PRN (14:05)
[2018-04-17] MEDS ORDERED: ACETAMINOPHEN(*)1000 MG/100 ML 100 ML IVPB PRN (14:05)
[2018-04-17] MEDS ORDERED: ALBUTEROL 2.5 MG/3 ML NEB NEB PRN (14:05)
[2018-04-17] MEDS ORDERED: MAGNESIUM HYDROXIDE* 30ML UDCP PO PRN (14:05)
--- NOTE | 2018-04-17 14:51 | History & Physical ---
History of Present Illness Chief Complaint Shortness of Breath History of Present Illness He is an 87-year-old male who prsented to the emergency department from the office of , for concerns of hypoxia and suspected pneumonia. Patient wa s sating only 70% on 7 L by face mask. He has been feeling rundown. He is a resident of [facility]. He is in DNR/DNI. Patient is somewhat of a poor historian due to some respiratory distress and inability to verbally communicate. He was found to have Influenza A. He was recommended for admission. History Problems: (1) Chronic obstructive pulmonary disease (COPD) Status: Acute (2) Depression, endogenous Status: Chronic (3) Chronic kidney disease, stage III (moderate) Status: Chronic (4) Hypothyroidism Status: Chronic (5) Chronic lymphocytic leukemia Status: Chronic (6) Monoclonal gammopathies Status: Chronic Home Meds Active Scripts Oseltamivir Phosphate (TAMIFLU) 75 Mg Cap, 75 MG PO QDAY, #14 CAP Prov:ROGERIO GUPTA MD 04/11/18 Ranitidine Hcl (ZANTAC) 150 Mg Tablet, 150 MG PO BID, #180 TAB 4 Refills Prov:ROGERIO GUPTA MD 02/19/18 Incontinence Pad,Liner,Disp (DEPEND GUARDS FOR MEN) 1 Each Each, BOX DIRECTED, #3 5 Refills Prov:ROGERIO GUPTA MD 02/19/18 Furosemide (FUROSEMIDE) 20 Mg Tablet, 1 TAB PO QODAY, #45 TAB 3 Refills Prov:ROGERIO GUPTA MD 02/13/18 Levothyroxine Sodium (LEVOTHYROXINE SODIUM) 0.112 Mg Tab, 0.112 MG PO QDAY, #90 TAB 4 Refills Prov:ROGERIO GUPTA MD 02/13/18 Citalopram Hydrobromide (CITALOPRAM HBR) 20 Mg Tablet, 1 TAB PO QDAY, #90 TAB 1 Refill Prov:ROGERIO GUPTA MD 11/24/17 Tamsulosin Hcl (TAMSULOSIN HCL) 0.4 Mg Cap.er.24h, 1 CAP PO BID, #180 CAP 1 Refill Prov:ROGERIO GUPTA MD 11/24/17 Mirtazapine (MIRTAZAPINE) 15 Mg Tablet, 1 TAB PO QHS, #90 TAB 1 Refill Prov:ROGERIO GUPTA MD 11/06/17 Ipratropium/Albuterol Sulfate (IPRAT-ALBUT 0.5-3(2.5) MG/3 ML) 3 Ml Ampul.neb, 1 PUFF IH TID PRN for SHORTNESS OF BREATH, #90 VIAL 5 Refills Prov:ROGERIO GUPTA MD 07/05/17 Cholecalciferol (Vitamin D3) (VITAMIN D3) 1,000 Unit Tablet, 1 TAB PO DAILY, #90 TAB 4 Refills Prov:ROGERIO GUPTA MD 02/17/17 Lactose-Free Food (ENSURE LIQUID) 237 Ml Liquid, 1 BOTTLE PO BID, #60 BOTTLE 6 Refills Prov:ROGERIO GUPTA MD 11/03/16 Reported Medications Aspirin (ASPIRIN) 325 Mg Tablet, 325 MG PO Q4-6H PRN for CHEST PAIN, TAB 04/17/18 Acetaminophen (TYLENOL) 325 Mg Tablet, 650 MG PO DAILY, TAB 04/17/18 Polyethylene Glycol 3350 (MIRALAX) 17 Gm Powd.pack, 17 GM PO DIRECTED, PKT Take M, W, F 04/25/17 [Cmpd Magic Mouthwash] No Conflict Check, 5 ML PO PRN Take 5 mL PO, swich, gargle and spit Q4H PRN for sore throat 04/25/17 Saliva Stimulant Agents Comb.3 (BIOTENE MOISTURIZING MOUTH) 44.3 Ml [place], 1 SPRAY PO TID PRN for DRY MOUTH, SPRAY 04/25/17 Bisacodyl (BISACODYL) 5 Mg Tablet.dr, 1-2 TAB PO PRN PRN for CONSTIPATION 04/25/17 Loperamide Hcl (LOPERAMIDE) 2 Mg Capsule, 2 MG PO, CAPSULE 07/15/16 Guaifenesin/Dextromethorphan (Robitussin Cough-Chest Dm Liq) 200 Mg-10 Mg/5 Ml Liquid, 5 ML PO PRN PRN for COUGH 07/17/15 Magnesium Hydroxide (MILK OF MAGNESIA) 400 Mg/5 Ml Oral.susp, 400 MG PO PRN PRN for CONSTIPATION, BOTTLE 07/17/15 [oxygen] No Conflict Check 01/21/14 Discontinued Reported Medications Aspirin (ASPIRIN) 81 Mg Tab.chew, 81 MG PO QDAY, TAB.CHEW 12/27/17 Discontinued Scripts Carbamide Peroxide 6.5% (DEBROX DROPS) 15 Ml Drops, 4 DROP OT BID for 5 Days, #15 ML Prov:ROGERIO GUPTA MD 12/27/17 Allergies: Coded Allergies: cefuroxime axetil (Verified Allergy, Intermediate, blisters, 04/17/18) lidocaine (Verified Allergy, Intermediate, CANT SMELL OR TASTE, 04/17/18) Uncoded Allergies: ALLERGAN (Allergy, Unknown, 05/30/13) Patient History: FH: congestive heart failure MOTHER, FH: heart disease FATHER, Hx Smoking: Yes Smoking Status: Former Smoker Caffeine Intake: Coffee Caffeine/Cups Per Day: 1-2 cups/day Hx Alcohol Use: Yes Hx Substance Use Disorder: No Review of Systems All Systems Reviewed/Normal: Yes, Except as Noted Neurological: Weakness, Other Respiratory: Shortness of Breath, Other (not verbal secondary to hypoxia) Exam Vital Signs Vital Signs Date Time Temp Pulse Resp B/P (MAP) Pulse Ox O2 Delivery O2 Flow Rate FiO2 04/17/18 14:04 98.2 88 28 100/64 (76) 93 Oxy Mask 4.5 General Appearance: Alert, Awake, No Acute Distress, Afebrile Neuro: Other (weakness throughout ) Cardiovascular: Regular Rate and Rhythm Respiratory: No Respiratory Distress, Other (diminished throughout) GI: Abd Soft and Non-Tender Extremities: Warm, Perfused; No Edema Psych: Other (non verbal) Medical Decision Making Data Points Result Diagram: 04/17/18 1024 04/17/18 1024 EKG / Imaging EKG Interpretation EKG performed in ER reviewed Imaging PATIENT NAME: Cali Escalera : 1930 MR: [id number] V: [id number] EXAM DATE: [id number] ORDERING PHYSICIAN: CRISTAL CLAY TECHNOLOGIST: Location: [facility] Patient: Cali Escalera : 1930 Visit/Account:[id number] Date of Sevice: 04/17/2018 Single view of the chest Indication: Respiratory distress. Comparison: X-ray examination of the chest from January 2018 Findings: Cardiac silhouette is unchanged. There is pulmonary hyperinflation with similar linear atelectasis/scarring in the lung bases. Deformity is noted of the right hemithorax from old trauma, unchanged. Increased blunting right costophrenic sulcus suspicious of trace right effusion. No current failure. Lucency is noted within the apices, finding indicative of underlying emphysema. IMPRESSION: 1. Pulmonary hyperinflation with underlying severe parenchymal changes from emphysema with similar bibasilar scarring/atelectasis. Compared to prior examination, increased blunting of the right costophrenic sulcus suspicious for a small right effusion. No current failure. Report Dictated By: Geronimo Mota MD at 04/17/2018 11:31 AM Report E-Signed By: Geronimo Mota MD at 04/17/2018 11:33 AM WSN:[facility] Assessment and Plan Problems: (1) Influenza A Status: Acute Assessment & Plan: He tested postiive for influenza A. He has recently been on prophylaxis dose of Tamiflu. He will be placed on renally dosed Tamiflu. (2) Chronic obstructive pulmonary disease (COPD) Status: Acute Assessment & Plan: He is on chronic treatment with Duoneb nebulizers. He will continue scheduled nebulizers. He did receive dose of Levaquin in the ER. He will be switched to Azithromycin, as no pneumonia was seen on CXR. Will consider treating like COPD exacerbation if no improvement in symptoms. (3) Hypothyroidism Status: Chronic Assessment & Plan: He is on chronic treatment with Levothyroxine. Continue. (4) Depression, endogenous Status: Chronic Assessment & Plan: He is on chronic treatment with Citalopram. (5) Chronic kidney disease, stage III (moderate) Status: Chronic Assessment & Plan: His creatinine was 2.4 upon admission. He appears to be near baseline. He will receive IV hydration secondary to decreased po intake. (6) Edema Status: Chronic Assessment & Plan: He is on chronic treatment with Lasix every other day. Continue. Venous Thromboembolism Antithrombotics Is Pt On Any Antithrombotics?: Yes Exam Sepsis Risk: No Definite Risk EDIE BECKP Apr 17, 2018 14:51
[2018-04-17 15:30] VITALS: BP 97/64
[2018-04-17] MEDS: AZITHROMYCIN(*) 500 MG 500 MG in NS(*) 0.9% 250 ML BAG 250 ML IVPB SCH (17:05)
[2018-04-17] MEDS: ALBUTEROL/IPRATROPIUM 3 ML NEB NEB SCH (17:15)
[2018-04-17 19:10] VITALS: BP 100/84
[2018-04-17] MEDS: RANITIDINE HCL 150 MG TAB PO SCH (21:18)
[2018-04-17] MEDS: MIRTAZAPINE 15 MG TAB PO SCH (21:18)
[2018-04-17] MEDS: TAMSULOSIN HCL 0.4 MG CAP PO SCH (21:18)
[2018-04-17 23:31] VITALS: BP 109/59
[2018-04-18] MEDS: NS(*) 0.9% 1000 ML BAG 1,000 ML IV PRN ×2 (04:18→18:41)
[2018-04-18] MEDS: ALBUTEROL/IPRATROPIUM 3 ML NEB NEB SCH ×3 (05:30→16:55)
[2018-04-18] MEDS: LEVOTHYROXINE SOD 0.112 MG TAB PO SCH (05:31)
[2018-04-18 06:20] LABS: PLATELET COUNT, AUTOMATED 148 K/uL (150-450)
--- NOTE | 2018-04-18 08:18 | RADIOLOGY IMAGING REPORT ---
FACILITY: [facility] PATIENT NAME: Cali Escalera : 1930 MR: [id number] V: [id number] EXAM DATE: ORDERING PHYSICIAN: DORINA FRANCIS TECHNOLOGIST: Location: [facility] [place] Patient: Cali Escalera : 1930 Visit/Account:[id number] Date of Sevice: 04/18/2018 CHEST SINGLE AP HISTORY: Hypoxia COMPARISON: 04/17/2018 FINDINGS: Lines/tubes: None. Lungs/pleura: Bibasal atelectasis versus infiltrate with small pleural effusions. No pneumothorax. Heart: Negative. Mediastinum: Negative. Bony structures/body wall: Healed right-sided rib fractures. IMPRESSION: Bibasilar atelectasis versus infiltrate with small pleural effusions. No significant lourdes nge. Report Dictated By: Joseph Hopper MD at 04/18/2018 8:12 AM Report E-Signed By: Joseph Hopper MD at 04/18/2018 8:13 AM WSN:[id number]
[2018-04-18] MEDS ORDERED: OSELTAMIVIR PHOS 6 MG/1 ML BTL PO SCH ×2 (09:00→16:10)
[2018-04-18] MEDS: TAMSULOSIN HCL 0.4 MG CAP PO SCH ×3 (09:00→21:44)
[2018-04-18] MEDS ORDERED: CITALOPRAM HYDROBROM 20 MG TAB PO SCH (09:00)
[2018-04-18] MEDS: RANITIDINE HCL 150 MG TAB PO SCH ×2 (09:00→21:29)
[2018-04-18] MEDS ORDERED: OSELTAMIVIR PHOS 30 MG CAP PO SCH (09:00)
--- NOTE | 2018-04-18 10:05 | NUR ---
Physical Therapy Impression Pt/OT co-eval completed. Pt only answering yes/no questions with nods of head currently and unable to communicate further information regarding previous level of mobility. Pt's own W/C, however, is in the room. Mod assist of 2 to sit at EOB. Once transferred to EOB, pt was gradually able to maintain sitting posture with kyphosis and no external support. Pt did indicate willingness to sit up in recliner for a bit after sitting unsupported at edge of bed. PT/OT provided Max/Total assist to transfer pt with 90 degree pivot to chair. Nursing available to assist and monitor VS. SpO2 sensor moved to pt's foot for more accurate reading without tremor of finger. HR was somewhat high at 120bpm and O2 was increased for this mobility as well. Physical Therapy Goals 1. Pt to be SBA/CGA for stand-pivot transfers to/from a variety of surfaces 2. Pt to be SBA/CGA for bed mobility and supine to/from sit 3. Pt to be able to communicate further functional mobility needs and goals to be modified as needed. Patient's Goals
--- NOTE | 2018-04-18 11:45 | Hospitalist Progress Note ---
Subjective Progress Notes Subjective This patient was admitted for influenza. He had no acute issues overnight. Patient Complains of: Cardiovascular: No: Chest Pain Respiratory: No: Shortness of Breath Physical Exam Vital Signs Date Time Temp Pulse Resp B/P (MAP) Pulse Ox O2 Delivery O2 Flow Rate FiO2 04/18/18 05:41 68 28 04/18/18 05:29 95 High-Flow Nasal Cannula 4.0 04/17/18 23:31 98.6 109/59 (76) Intake and Output 04/18/18 06:59 Intake Total 1962 ml Balance 1962 ml Intake Oral 500 ml IV Total 1462 ml # Voids 2 Cardiovascular: Regular Rate and Rhythm Respiratory: Clear to Auscultation Result Diagram: 04/18/1853504/18/18535 Assessment and Plan Problems: (1) Influenza A Status: Acute Assessment & Plan: He tested positive for influenza A. He has recently been on prophylaxis dose of Tamiflu. We did place him on full dose Tamiflu. (2) Chronic obstructive pulmonary disease (COPD) Status: Acute Assessment & Plan: He is on chronic treatment with Duoneb nebulizers. He will continue scheduled nebulizers. He did receive dose of Levaquin in the ER. He will be switched to Azithromycin, as no pneumonia was seen on CXR. Will consider treating like COPD exacerbation if no improvement in symptoms. (3) Hypothyroidism Status: Chronic Assessment & Plan: He is on chronic treatment with Levothyroxine. (4) Depression, endogenous Status: Chronic Assessment & Plan: He is on chronic treatment with Citalopram. (5) Chronic kidney disease, stage III (moderate) Status: Chronic Assessment & Plan: His creatinine was 2.4 upon admission. He appears to be near baseline. He will receive IV hydration secondary to decreased po intake. (6) Edema Status: Chronic Assessment & Plan: He is on chronic treatment with Lasix every other day. Continue. Exam Sepsis Risk: Severe Sepsis Risk ELLIE JADE DO Apr 18, 2018 11:45
[2018-04-18 12:39] VITALS: Ht 182.9 cm; Wt 66.7 kg
--- NOTE | 2018-04-18 12:47 | NUR ---
Occupational Therapy Impression OT evaluation completed with PT. Pt. requiring Max- total A x2 to perform stand pivot transfer from EOB to chair with increased O2 demand. OT recommends pt. d/c to care home subacute rehab. Occupational Therapy Goals 1. Pt. to perform dressing activities with Max A. 2. Pt. to perform showering activities with Mod A. 3. Pt. to perform toileting activities with Mod A. 4. Pt. to perform grooming activities with Mod A. Patient's Goal
--- NOTE | 2018-04-18 13:09 | Medical Nutrition Therapy ---
Nutrition Anthropometrics Height (Inches): 72.00 Height (Calculated Centimeters: 182.339133 Weight (Pounds): 147 Weight (Calculated Kilograms): 66.706 BMI: 19.9 [place] Nutrition Score: Probably Inadequate [place] Nutrition Risk Score: 14 Dietary Referral Nutrition Risk Factors: Significantly Underwt. Nutrition Risk Comment: Likes only mechanical soft foods Physical Findings Physical Appearance: Skin Appearance Skin Appearance: Edema Edema Location Modifier: Both Edema Location: Foot Type of Edema: Degree of Edema: 1+ Gastrointestinal Symptoms GI Symtoms: Tube Present: Bowel Sounds: Recent Bowel Pattern: Stool Characteristics: Nutritional Diagnosis Nutritional Risk Acuity 2: Chronic Renal Failure Nutritional Risk Acuity 3: Cancer, COPD Unstable Past Medical History: CLL (Cancer radiation tx in July 2013) CKDIII, Edema, Depression, Hypothyroid, Constipation, COPD Nutritional Acuity: 2-Moderate Nutrition Diagnosis: Increased Nutrient Needs Nutrition Etiology: Physiological Causes Nutrition Problem/Etiology/Sym: Increased nutrient needs related to physiological causes as evidenced by dx influenza A, CKD stage 3, and lymphocytic leukemia. Energy Requirement: 1972 (MSJ, 1.1 tef, 1.3 af) Protein Requirement: 67 (1 g AA/kg of BW) Fluid Requirement: 1973 (1 ml/kcal) Diet Type: Diet as Tolerated SAMM/REG Nutrition Intervention: Cont diet as ordered Drug: Diuretics Nutrition Monitoring & Eval Nutrition Goals: Eat 50-100% Meal RD Patient Assessment Time: [address] Assessment Type: RD Assessment Patient Nutrition Acuity: 2-Moderate Follow Up Date: Apr 20, 2018 Nutritional Comment: 04/18: Pt admitted for influenza A, COPD, CKD stage 3. Pt has a hx of CLL (Cancer radiation tx in July 2013) CKDIII, Edema, Depression, Hypothyroid, Constipation, COPD. Pt has elevated BUN (39) and creatinine (39) levels. Pt has decreased albumin (2.5) and is taking furosemide (diuretic), Potassium is WNL. Pt is on a samm diet with no intake reported. -JOZEF MENDEZ Apr 18, 2018 12:49
[2018-04-18 15:10] VITALS: BP 100/59
[2018-04-18] MEDS: ENOXAPARIN 30 MG/0.3 ML SYR SC SCH (16:25)
[2018-04-18] MEDS: AZITHROMYCIN(*) 500 MG 500 MG in NS(*) 0.9% 250 ML BAG 250 ML IVPB SCH (16:25)
[2018-04-18 19:54] VITALS: BP 87/51
[2018-04-18 19:56] VITALS: BP 88/50
[2018-04-18] MEDS: MIRTAZAPINE 15 MG TAB PO SCH (21:30)
[2018-04-18 22:45] VITALS: BP 95/53
[2018-04-19 02:44] VITALS: BP 98/50
[2018-04-19] MEDS: ALBUTEROL/IPRATROPIUM 3 ML NEB NEB SCH ×2 (05:33→11:26)
[2018-04-19] MEDS: LEVOTHYROXINE SOD 0.112 MG TAB PO SCH (06:13)
[2018-04-19] MEDS: NS(*) 0.9% 1000 ML BAG 1,000 ML IV PRN (06:13)
[2018-04-19 07:50] VITALS: BP 96/56
[2018-04-19] MEDS ORDERED: FUROSEMIDE 20 MG TAB PO SCH (09:00)
[2018-04-19] MEDS ORDERED: INFLUENZA VIRUS VAC 0.5ML SYR IM ONLY ONE (09:00)
[2018-04-19] MEDS: ENOXAPARIN 30 MG/0.3 ML SYR SC SCH (09:12)
[2018-04-19] MEDS: RANITIDINE HCL 150 MG TAB PO SCH (09:12)
[2018-04-19] MEDS: TAMSULOSIN HCL 0.4 MG CAP PO SCH (09:12)
--- NOTE | 2018-04-19 09:37 | NUR ---
Occupational Therapy Impression Family deciding on whether to pursue comfort care/ Hospice care. Will await decision before continuing with therapy. Occupational Therapy Goals 1. Pt. to perform dressing activities with Max A. 2. Pt. to perform showering activities with Mod A. 3. Pt. to perform toileting activities with Mod A. 4. Pt. to perform grooming activities with Mod A. Patient's Goal
--- NOTE | 2018-04-19 10:49 | Hospitalist Progress Note ---
Subjective Progress Notes Subjective He has improved from a respiratory standpoint, but is still not communicating. He had no acute events overnight. Patient Complains of: Cardiovascular: No: Chest Pain Respiratory: No: Shortness of Breath Physical Exam Vital Signs Date Time Temp Pulse Resp B/P (MAP) Pulse Ox O2 Delivery O2 Flow Rate FiO2 04/19/18 09:12 94 Nasal Cannula 3.0 04/19/18 07:50 99.6 76 16 96/56 (69) Intake and Output 04/19/18 07:00 Intake Total 1640 ml Output Total 1050 ml Balance 590 ml Intake Oral 640 ml IV Total 1000 ml Output Urine Total 1050 ml # Voids 77 # Bowel Movements 1 General Appearance: Alert, Awake, No Acute Distress, Afebrile Neuro: No Gross deficits Cardiovascular: Regular Rate and Rhythm Respiratory: No Respiratory Distress, Clear to Auscultation GI: Soft and Non-Tender Psych: Other (non verbal) Result Diagram: 04/18/1836 04/18/1836 Assessment and Plan Problems: (1) Influenza A Status: Acute Assessment & Plan: He tested positive for influenza A. He has recently been on prophylaxis dose of Tamiflu. We did place him on full dose Tamiflu. (2) Chronic obstructive pulmonary disease (COPD) Status: Acute Assessment & Plan: He is on chronic treatment with Duoneb nebulizers. He will continue scheduled nebulizers. He did receive dose of Levaquin in the ER. He was switched to Azithromycin, as no pneumonia was seen on CXR. Will consider treating like COPD exacerbation if no improvement in symptoms. (3) Hypothyroidism Status: Chronic Assessment & Plan: He is on chronic treatment with Levothyroxine. (4) Depression, endogenous Status: Chronic Assessment & Plan: He is on chronic treatment with Citalopram, will hold while on azithromycin secondary to prolonged QT. (5) Chronic kidney disease, stage III (moderate) Status: Chronic Assessment & Plan: His creatinine was 2.4 upon admission, which decreased to 2.0 with IV hydration. He appears to be near baseline. He will receive IV hydration secondary to decreased po intake. (6) Edema Status: Chronic Assessment & Plan: He is on chronic treatment with Lasix every other day. Continue. Exam Sepsis Risk: No Definite Risk EDIE BECKP Apr 19, 2018 10:49
[2018-04-19 11:44] VITALS: BP 89/72
--- NOTE | 2018-04-19 13:01 | Hospitalist Depart ---
Discharge Summary Reason for Hosp/Final Diag: (1) Influenza A Status: Acute Hospital Course & Plan: He tested positive for influenza A. He has recently been on prophylaxis dose of Tamiflu. We did place him on full dose Tamiflu. (2) Chronic obstructive pulmonary disease (COPD) Status: Acute Hospital Course & Plan: He is on chronic treatment with Duoneb nebulizers. He continued scheduled nebulizers. He did receive dose of Levaquin in the ER. He was switched to Azithromycin, as no pneumonia was seen on CXR. The patient and family have decided to be transferred to [facility]. (3) Hypothyroidism Status: Chronic Hospital Course & Plan: He is on chronic treatment with Levothyroxine. (4) Depression, endogenous Status: Chronic Hospital Course & Plan: He is on chronic treatment with Citalopram, will hold while on azithromycin secondary to prolonged QT. (5) Chronic kidney disease, stage III (moderate) Status: Chronic Hospital Course & Plan: His creatinine was 2.4 upon admission, which decreased to 2.0 with IV hydration. He appears to be near baseline. He will receive IV hydration secondary to decreased po intake. (6) Edema Status: Chronic Hospital Course & Plan: He is on chronic treatment with Lasix every other day. Continue. Departure Latest Vital Signs Vital Signs 04/19/18 11:44 Temp 99.1 Pulse 78 Resp 30 B/P (MAP) 89/72 (78) Pulse Ox 95 O2 Delivery Oxy Mask O2 Flow Rate 3.0 Weight (Pounds): 147 Weight (Ounces): 1.0 Result Diagram: 04/18/18 0536 04/18/18 0536 Condition: Improved Discharge: Hospice Discharge Instructions Home Meds Active Scripts Ranitidine Hcl (ZANTAC) 150 Mg Tablet, 150 MG PO BID, #180 TAB 4 Refills Prov:ROGERIO GUPTA MD 02/19/18 Incontinence Pad,Liner,Disp (DEPEND GUARDS FOR MEN) 1 Each Each, BOX MC [place], #3 5 Refills Prov:ROGERIO GUPTA MD 02/19/18 Furosemide (FUROSEMIDE) 20 Mg Tablet, 1 TAB PO QODAY, #45 TAB 3 Refills Prov:ROGERIO GUPTA MD 02/13/18 Levothyroxine Sodium (LEVOTHYROXINE SODIUM) 0.112 Mg Tab, 0.112 MG PO QDAY, #90 TAB 4 Refills Prov:ROGERIO GUPTA MD 02/13/18 Citalopram Hydrobromide (CITALOPRAM HBR) 20 Mg Tablet, 1 TAB PO QDAY, #90 TAB 1 Refill Prov:ROGERIO GUPTA MD 11/24/17 Tamsulosin Hcl (TAMSULOSIN HCL) 0.4 Mg Cap.er.24h, 1 CAP PO BID, #180 CAP 1 Refill Prov:ROGERIO GUPTA MD 11/24/17 Mirtazapine (MIRTAZAPINE) 15 Mg Tablet, 1 TAB PO QHS, #90 TAB 1 Refill Prov:ROGERIO GUPTA MD 11/06/17 Ipratropium/Albuterol Sulfate (IPRAT-ALBUT 0.5-3(2.5) MG/3 ML) 3 Ml Ampul.neb, 1 PUFF IH TID PRN for SHORTNESS OF BREATH, #90 VIAL 5 Refills Prov:ROGERIO GUPTA MD 07/05/17 Cholecalciferol (Vitamin D3) (VITAMIN D3) 1,000 Unit Tablet, 1 TAB PO DAILY, #90 TAB 4 Refills Prov:ROGERIO GUPTA MD 02/17/17 Lactose-Free Food (ENSURE LIQUID) 237 Ml Liquid, 1 BOTTLE PO BID, #60 BOTTLE 6 Refills Prov:ROGERIO GUPTA MD 11/03/16 Reported Medications Aspirin (ASPIRIN) 325 Mg Tablet, 325 MG PO Q4-6H PRN for CHEST PAIN, TAB 04/17/18 Acetaminophen (TYLENOL) 325 Mg Tablet, 650 MG PO DAILY, TAB 04/17/18 Polyethylene Glycol 3350 (MIRALAX) 17 Gm Powd.pack, 17 GM PO DIRECTED, PKT Take M, W, F 04/25/17 [Cmpd Magic Mouthwash] No Conflict Check, 5 ML PO PRN Take 5 mL PO, swich, gargle and spit Q4H PRN for sore throat 04/25/17 Saliva Stimulant Agents Comb.3 (BIOTENE MOISTURIZING MOUTH) 44.3 Ml [place], 1 SPRAY PO TID PRN for DRY MOUTH, SPRAY 04/25/17 Bisacodyl (BISACODYL) 5 Mg Tablet.dr, 1-2 TAB PO PRN PRN for CONSTIPATION 04/25/17 Loperamide Hcl (LOPERAMIDE) 2 Mg Capsule, 2 MG PO, CAPSULE 07/15/16 Guaifenesin/Dextromethorphan (Robitussin Cough-Chest Dm Liq) 200 Mg-10 Mg/5 Ml Liquid, 5 ML PO PRN PRN for COUGH 07/17/15 Magnesium Hydroxide (MILK OF MAGNESIA) 400 Mg/5 Ml Oral.susp, 400 MG PO PRN PRN for CONSTIPATION, BOTTLE 07/17/15 [oxygen] No Conflict Check 01/21/14 Discontinued Reported Medications Aspirin (ASPIRIN) 81 Mg Tab.chew, 81 MG PO QDAY, TAB.CHEW 12/27/17 Discontinued Scripts Oseltamivir Phosphate (TAMIFLU) 75 Mg Cap, 75 MG PO QDAY, #14 CAP Prov:ROGERIO GUPTA MD 04/11/18 Carbamide Peroxide 6.5% (DEBROX DROPS) 15 Ml Drops, 4 DROP OT BID for 5 Days, #15 ML Prov:ROGERIO GUPTA MD 12/27/17 Diet: Regular Activity: As Tolerated Copies to: ROGERIO GUPTA MD ; Venous Thromboembolism Antithrombotics Is Pt On Any Antithrombotics?: Yes EDIE BECK Apr 19, 2018 13:01
[2018-04-19] MEDS ORDERED: MORP100S32 PO (14:30)
[2018-04-19] MEDS ORDERED: LORA-1455 PO (14:30)
== END 2018-04-19 14:50 | disposition hospice, home (50) | DRG 194 ==
LOC: ER 10:23 → MED 12:03
PROVIDERS: ADMIT Internal Medicine; ATTEND Internal Medicine
DX: J10.1 Influenza due to other identified influenza virus with other respiratory manifestations (principal); J44.1 Chronic obstructive pulmonary disease with (acute) exacerbation; F33.2 Major depressive disorder, recurrent severe without psychotic features; C91.10 Chronic lymphocytic leukemia of B-cell type not having achieved remission; D47.2 Monoclonal gammopathy; N18.3 Chronic kidney disease, stage 3 (moderate); E03.9 Hypothyroidism, unspecified; R60.9 Edema, unspecified; Z79.82 Long term (current) use of aspirin; Z88.8 Allergy status to other drugs, medicaments and biological substances
CPT/HCPCS: 36415; 36416; 36600; 71045; 82040; 82247; 82310; 82374; 82435; 82565; 82803; 82947; 82948; 84075; 84132; 84155; 84295; 84450; 84460; 84520; 85025; 87040; 87502; 93005; 94640; 94667; 94668; 96365; 97162; 97166; 99284; J0456; J1650; J1956; J7030; J7050

== ENCOUNTER → 2018-04-19 | Outpatient (CLI) | payer MEDICARE ==
[2018-04-18 12:39] VITALS: BMI 19.9
[~2018-04-19] MED LIST changes: +LORA-1455 PO; +MORP100S32 PO
== END ==
LOC: AMB 14:33
PROVIDERS: ATTEND Nurse Practitioner
DX: R62.7 Adult failure to thrive (principal); Z51.5 Encounter for palliative care
CPT/HCPCS: A0425; A0428